=== PATIENT | female | born 1960 | race Caucasian/White ===

== ENCOUNTER 2019-02-19 19:09 | Inpatient (IN) | payer MEDICARE, MEDICAID ==
[~2019-02-19] VITALS: Ht 157.5 cm; Wt 66.2 kg
[2019-02-19] MEDS ORDERED: ZITHROMAX250 MG PO (20:09)
[2019-02-19] MEDS ORDERED: LEVOTHYROXINE50 MCG PO (20:10)
[2019-02-19] MEDS ORDERED: AMLODIPINE BES2.5 MG PO (20:10)
[2019-02-19] MEDS ORDERED: GABAPENTIN100 MG PO (20:11)
[2019-02-19] MEDS ORDERED: LOSARTAN POTASS50 MG PO (20:11)
[2019-02-19] MEDS ORDERED: REGLAN10 MG PO (20:12)
[2019-02-19] MEDS ORDERED: LANTUS SOL100 UNIT/1 SUB-Q (20:13)
[2019-02-19] MEDS ORDERED: HYDROXYCHLOROQ200 MG PO (20:13)
[2019-02-19] MEDS ORDERED: HYDROCORTISONE5 MG PO (20:13)
[2019-02-19] MEDS ORDERED: FORTEO2.4 ML SUB-Q (20:13)
[2019-02-19] MEDS ORDERED: NOVOLIN R100 UNIT/1 SUB-Q (20:14)
[2019-02-19] MEDS ORDERED: PEPCID20 MG PO (20:15)
[2019-02-19] MEDS ORDERED: IRON325 M1 PO (20:15)
--- NOTE | 2019-02-19 22:45 | EKG ---
[facility] [address] [facility] [place] [address] Signed Normal sinus rhythm with 1st degree AV block Low voltage QRS Prolonged QT Abnormal ECG No previous ECGs available Confirmed by JEFFERSON GARCIA MD ([id number]) on 02/19/2019 10:45:28 PM Electronically Signed By: JEFFERSON GARCIA MD 02/19/19 2245 PATIENT NAME: FREDERIC BRYAN ISMAEL Electrocardiogram DATE OF : 64 PHYSICIAN: JEFFERSON GARCIA MD REPORT #: [id number] REPORT IS CONFIDENTIAL AND NOT TO BE RELEASED WITHOUT AUTHORIZATION
[2019-02-20] MEDS ORDERED: CORTEF5 MG PO (08:15)
[2019-02-20] MEDS ORDERED: METHOTREXATE2.5 MG PO (08:23)
[2019-02-20] MEDS ORDERED: LANTUS SOL100 UNIT/1 SUB-Q (08:36)
[2019-02-22] MEDS ORDERED: CEFPODOXIME PR200 MG PO (10:36)
[2019-02-22] MEDS ORDERED: OXYCODONE HCL5 MG PO (10:40)
== END 2019-02-22 12:25 | disposition home or self-care (01) | DRG 690 ==
LOC: ED 19:09 → MS 23:53
PROVIDERS: ADMIT Internal Medicine
DX: N10 Acute pyelonephritis (principal); E27.1 Primary adrenocortical insufficiency; E10.319 Type 1 diabetes mellitus with unspecified diabetic retinopathy without macular edema; E10.40 Type 1 diabetes mellitus with diabetic neuropathy, unspecified; I10 Essential (primary) hypertension; E03.9 Hypothyroidism, unspecified; K21.9 Gastro-esophageal reflux disease without esophagitis; E83.42 Hypomagnesemia; M06.9 Rheumatoid arthritis, unspecified; Z87.891 Personal history of nicotine dependence; Z79.4 Long term (current) use of insulin; Z79.52 Long term (current) use of systemic steroids; Z79.899 Other long term (current) drug therapy; Z88.8 Allergy status to other drugs, medicaments and biological substances; Z88.0 Allergy status to penicillin; Z91.040 Latex allergy status
CPT/HCPCS: 36415; 71046; 74176; 80048; 80053; 81001; 82010; 82800; 83690; 83735; 84484; 85007; 85025; 85032; 93005; 93010; 96374; 96375; 99285-25; J0696; J1170; J1650; J1815; J2270; J2405; J3475; J3480; J7030; J7060; J7120